=== PATIENT | female | born 1995 | race African-American/Black ===

== ENCOUNTER 2023-07-10 14:34 | Outpatient (CLI) | payer OTHER, SELFPAY ==
[2023-07-10 17:08] LABS: HIV 1/2 Ab P24 Ag Result Negative (Negative)
[2023-07-10 18:31] LABS: Hepatitis B Surface Antigen Negative (Negative)
[2023-07-10 18:36] LABS: HAV RESULT Negative (Negative); Hepatitis B Core IgM Result Negative (Negative)
[2023-07-10 18:48] LABS: Hepatitis C Virus Antibody Negative (Negative)
[2023-07-11 17:11] LABS: Rapid Plasma Reagin Non-Reactive (NonReactive)
== END 2023-07-10 14:35 | disposition home or self-care (01) ==
LOC: ANHLAB 14:36
PROVIDERS: Visit Provider Student in an Organized Health Care Education/Training Program
DX: Z11.3 Encounter for screening for infections with a predominantly sexual mode of transmission (principal)
CPT/HCPCS: 36415; 80074; 86592; 86695; 86696; 86703; 87077; 87086; 87088; G0432